=== PATIENT | female | born 1935 | race Caucasian/White ===

== ENCOUNTER 2018-04-07 11:07 | Emergency (ER) | payer MEDICARE, BC ==
[2018-04-07 11:18] VITALS: BP 147/91
--- NOTE | 2018-04-07 12:48 | UC ---
Bite Injury/Animal HPI - HPI Summary HPI Summary: L abd tick bite she noticed today but feels its been there a week. - History of Current Complaint Chief Complaint: Vivian Stated Complaint: TICK BITE Time Seen by Provider: 04/07/18 12:30 Hx Obtained From: Patient Hx Last Menstrual Period: na ?: No Pain Intensity: 0 Onset/Duration: Sudden Onset Type of Bite: Animal Aggravating Factor(s): Nothing Alleviating Factor(s): Nothing Associated Signs And Symptoms: Positive: Negative - Risk Factors Infection/Sepsis Risk Factors: Delay in Initial Treatment - tick bite for one week - Allergies/Home Medications Allergies/Adverse Reactions: Allergies Allergy/AdvReac Type Severity Reaction Status Date / Time acetaminophen Allergy See Comment Verified 04/07/18 11:19 codeine Allergy Anxiety Verified 04/07/18 11:19 Sulfa (Sulfonamide Allergy Hives Verified 04/07/18 11:19 Antibiotics) PMH/Surg Hx/FS Hx/Imm Hx Previously Healthy: Yes - Surgical History Surgical History: Yes Surgery Procedure, Year, and Place: TONSILS;HYSTERECTOMY; BREAST REDUCTION; CATARACT -2011; Rt KNEE ARTHROSCOPIC- 2008 - Social History Alcohol Use: Occasionally Alcohol Amount: 1 glass wine Substance Use Type: None Smoking Status (MU): Former Smoker Type: Cigarettes Have You Smoked in the Last Year: No When Did the Patient Quit Smoking/Using Tobacco: 1979 Review of Systems All Other Systems Reviewed And Are Negative: Yes Constitutional: Positive: Negative Skin: Positive: Other - itchy at site where tick is. Respiratory: Positive: Negative Cardiovascular: Positive: Negative Musculoskeletal: Positive: Negative Physical Exam Triage Information Reviewed: Yes Appearance: Well-Appearing Vital Signs: Initial Vital Signs Temp 96.8 F 04/07/18 11:13 Pulse 60 04/07/18 11:13 Resp 20 04/07/18 11:13 BP 147/91 04/07/18 11:13 Pulse Ox 98 04/07/18 11:13 Vital Signs Reviewed: Yes Skin: Positive: Other - at l side of upper abd there is an engorged tick and small circular area of irritation. removed w/ out issue. Bite Injury Course/Dx - Course Course Of Treatment: tick bite for more than 36 hours and tick engorged. asymptomatic aside from site irritation. removed without issue. needs f/u w/ elevated blood pressure. no cardiac or neuro symptoms. - Differential Dx/Diagnosis Differential Diagnosis/HQI/PQRI: Other - tick bite Provider Diagnoses: tick bite, tick removal. Discharge - Sign-Out/Discharge Documenting (check all that apply): Patient Departure All imaging exams completed and their final reports reviewed: No Studies - Discharge Plan Condition: Good Disposition: HOME Prescriptions: DOXYcycline CAP(*) [DOXYcycline 100MG CAP(*)] 100 mg PO BID #28 cap Patient Education Materials: Tick Bite (ED) Referrals: Marjorie La MD [Primary Care Provider] - Additional Instructions: Please follow up with your pcp about elevated blood pressure. Finish antibiotics until complete. - Billing Disposition and Condition Condition: GOOD Disposition: Home
== END 2018-04-07 13:02 | disposition home or self-care (01) ==
LOC: UCEAST 11:07
DX: S30.861A Insect bite (nonvenomous) of abdominal wall, initial encounter (principal); Z88.5 Allergy status to narcotic agent; Z88.6 Allergy status to analgesic agent; Z87.891 Personal history of nicotine dependence; W57.XXXA Bitten or stung by nonvenomous insect and other nonvenomous arthropods, initial encounter; Y92.9 Unspecified place or not applicable
CPT/HCPCS: 99212; G0463

== ENCOUNTER 2018-05-30 14:28 | Emergency (ER) | payer MEDICARE, BC ==
[2018-05-30 15:08] VITALS: BP 155/94
--- NOTE | 2018-05-30 15:08 | UC ---
Ear Complaint HPI - HPI Summary HPI Summary: 82 yo female presents with FB in right ear. She tells me that she has had this happen before. Went to take her hearing aids out and the plastic ear piece remained lodged in her ear canal. She is in no pain. Was unable to remove it at home. - History of Current Complaint Chief Complaint: UCForeignBody Stated Complaint: FOREIGN OBJECT-EAR Time Seen by Provider: 05/30/18 15:08 Hx Obtained From: Patient Hx Last Menstrual Period: post Onset/Duration: Sudden Onset Severity Currently: None Pain Intensity: 0 - Allergies/Home Medications Allergies/Adverse Reactions: Allergies Allergy/AdvReac Type Severity Reaction Status Date / Time acetaminophen Allergy See Comment Verified 05/30/18 15:08 codeine Allergy Anxiety Verified 05/30/18 15:08 Sulfa (Sulfonamide Allergy Hives Verified 05/30/18 15:08 Antibiotics) PMH/Surg Hx/FS Hx/Imm Hx Endocrine History: Hypothyroidism Psychological History: Anxiety, Depression - Surgical History Surgical History: Yes Surgery Procedure, Year, and Place: TONSILS;HYSTERECTOMY; BREAST REDUCTION; CATARACT -2011; Rt KNEE ARTHROSCOPIC- 2008 - Family History Known Family History: Positive: Unknown - Social History Occupation: Retired Lives: With Family Alcohol Use: Occasionally Alcohol Amount: 1 glass wine Substance Use Type: None Smoking Status (MU): Former Smoker Type: Cigarettes Have You Smoked in the Last Year: No When Did the Patient Quit Smoking/Using Tobacco: 1979 Review of Systems All Other Systems Reviewed And Are Negative: Yes Constitutional: Positive: Negative Skin: Positive: Negative Eyes: Positive: Negative ENT: Positive: Other - FB in ear Respiratory: Positive: Negative Cardiovascular: Positive: Negative Physical Exam - Summary Physical Exam Summary: GENERAL: NAD. WDWN. No pain distress. SKIN: No rashes, sores, lesions, or open wounds. HEENT: Head: AT/NC Eyes: EOM intact. Conjunctiva clear without inflammation or discharge. Ears: Hearing decreased d/t no hearing aid. RIGHT EAR with plastic FB lodged within canal. s/p removal: No cerumen or erythema. TM intact. CHEST: No accessory muscle use. Breathing comfortably and in no distress. CV: Pulses intact. NEURO: Alert. PSYCH: Age appropriate behavior. Triage Information Reviewed: Yes Vital Signs: Initial Vital Signs Temp 98.1 F 05/30/18 15:05 Pulse 77 05/30/18 15:05 Resp 16 05/30/18 15:05 BP 155/94 05/30/18 15:05 Pulse Ox 98 05/30/18 15:05 Vital Signs Reviewed: Yes Ear Complaint Course/Dx - Course Course Of Treatment: Hemostats were used to gently pull the ear piece out of the right ear canal. Removed without difficulty. Pt tolerated well. - Differential Dx/Diagnosis Provider Diagnosis: Foreign body in right ear Discharge - Sign-Out/Discharge Documenting (check all that apply): Patient Departure All imaging exams completed and their final reports reviewed: No Studies - Discharge Plan Condition: Stable Disposition: HOME Patient Education Materials: Ear Foreign Body (ED) Referrals: Marjorie La MD [Primary Care Provider] - Additional Instructions: If you develop a fever, shortness of breath, chest pain, new or worsening symptoms - please call your PCP or go to the ED. Your blood pressure was high at todays visit. Please see your primary provider within 4 weeks for recheck and re-evaluation. - Billing Disposition and Condition Condition: STABLE Disposition: Home
== END 2018-05-30 15:25 | disposition home or self-care (01) ==
LOC: UCEAST 14:28
DX: T16.1XXA Foreign body in right ear, initial encounter (principal); Z88.6 Allergy status to analgesic agent; Z88.5 Allergy status to narcotic agent; Z88.2 Allergy status to sulfonamides; Z87.891 Personal history of nicotine dependence; X58.XXXA Exposure to other specified factors, initial encounter; Y92.9 Unspecified place or not applicable
CPT/HCPCS: 99211; G0463

== ENCOUNTER 2018-09-26 18:30 | Emergency (ER) | payer MEDICARE, BC ==
[2018-09-26 18:58] VITALS: BP 187/90
--- NOTE | 2018-09-26 20:01 | UC ---
Ear Complaint HPI - HPI Summary HPI Summary: 82 y/o female presents to the urgent care c/o a piece of her hearing aid is in her Rt ear. Pt reports she tried to remove hearing aid about 2 hrs ago and she noticed the dome was missing. She has mild pressure and discomfort in her Rt ear. Pt denies pain, dizziness, fever, LUCAS, SOB, visual changes, chest pain, abdominal pain, N/V/D. Pt states her BP medication Amlodipine was decrease about 3 months ago by her PCP after going through a lot of cardiac work up and everything was normal. - History of Current Complaint Chief Complaint: UCEar Stated Complaint: EAR COMPLAINT Time Seen by Provider: 09/26/18 19:19 Hx Obtained From: Patient Hx Last Menstrual Period: post Onset/Duration: Sudden Onset, Lasting Hours - 3 hrs Severity Initially: Mild Severity Currently: Mild Pain Intensity: 1 - RT ear irritation Pain Scale Used: 0-10 Numeric Aggravating Factors: Nothing Alleviating Factors: Nothing Associated Signs/Symptoms: Positive: Hearing Loss - Allergies/Home Medications Allergies/Adverse Reactions: Allergies Allergy/AdvReac Type Severity Reaction Status Date / Time acetaminophen Allergy See Comment Verified 09/26/18 19:00 codeine Allergy Anxiety Verified 09/26/18 19:00 Sulfa (Sulfonamide Allergy Hives Verified 09/26/18 19:00 Antibiotics) PMH/Surg Hx/FS Hx/Imm Hx Previously Healthy: Yes Endocrine History: Hypothyroidism, Dyslipidemia Cardiovascular History: Hypertension Psychological History: Anxiety, Depression - Surgical History Surgical History: Yes Surgery Procedure, Year, and Place: TONSILS;HYSTERECTOMY; BREAST REDUCTION; CATARACT -2011; Rt KNEE ARTHROSCOPIC- 2008 - Family History Known Family History: Positive: Cardiac Disease, Hypertension - Social History Occupation: Retired Lives: With Family Alcohol Use: Occasionally Alcohol Amount: 1 glass wine Substance Use Type: None Smoking Status (MU): Former Smoker Type: Cigarettes Have You Smoked in the Last Year: No When Did the Patient Quit Smoking/Using Tobacco: 1979 Review of Systems All Other Systems Reviewed And Are Negative: Yes Constitutional: Positive: Negative Skin: Positive: Negative Eyes: Positive: Negative ENT: Positive: Ear Ache - Rt ear hearing aid foreign body Respiratory: Positive: Negative Cardiovascular: Positive: Negative Gastrointestinal: Positive: Negative Genitourinary: Positive: Negative Motor: Positive: Negative Neurovascular: Positive: Negative Musculoskeletal: Positive: Negative Neurological: Positive: Negative Psychological: Positive: Negative Is Patient Immunocompromised?: No Physical Exam - Summary Physical Exam Summary: Vital signs: reviewed General: well developed, well nourished old female sitting in the examining table w/o any apparent pain or respiratory distress Skin: [place], warm and dry, no evidence of atopic dermatitis, psoriasis, seborrhea. HEENT: -Head: atraumatic, non tender; no scalp dermatitis. -Eyes: sclera and conjunctiva clear, PERRLA, EOMI -Ears: no pre- or postauricular lymphadenopathy or erythema; RT external ear canal with a herrera hearing aid dome, no pinna tenderness on palpation, FB removed anbd no signs of infection Rt TM WNL, LF external ear canal clear and LF TM WNL. TMs normal w/out bulging or retraction. Good light reflex. No fluid level, vesicles, or bullae. No perforation. -Nose/Face: erythematous and edematous nasal mucosa with clear rhinorrhea, no frontal or maxillary sinus tender to palpation. -Mouth/Throat: Mucous membrane moist, posterior pharynx clear, no erythema or exudates. Neck: supple, FROM, nontender, no lymphadenopathy, no meningismus. Chest: Clear to auscultation, normal breath sounds Abd: soft, Bowel sounds active, Nontender. Back: no spinal or CVAT Neuro: A&O x4, GCS 15, no focal neuro deficits, normal behavior for age. Triage Information Reviewed: Yes Vital Signs: Initial Vital Signs Temp 97.9 F 09/26/18 18:53 Pulse 78 09/26/18 18:53 Resp 16 09/26/18 18:53 BP 187/90 09/26/18 18:53 Pulse Ox 98 09/26/18 18:53 Ear Complaint Course/Dx - Course Course Of Treatment: 82 y/o female presents to the urgent care c/o a piece of her hearing aid is in her Rt ear. Pt reports she tried to remove hearing aid about 2 hrs ago and she noticed the dome was missing. She has mild pressure and discomfort in her Rt ear. Pt denies pain, dizziness, fever, LUCAS, SOB, visual changes, chest pain, abdominal pain, N/V/D. Pt states her BP medication Amlodipine was decrease about 3 months ago by her PCP after going through a lot of cardiac work up and everything was normal. Hx obtained. Pt is hemodynamically stable, A&OX3. Pt w/ RT external ear canal with a herrera hearing aid dome, no pinna tenderness on palpation, FB removed and no signs of infection, Rt TM WNL. Pt tolerated well procedure. Pt w/ PMHX of HTN . Pt's BP is elevated today. she states she already went trough 3 EKGs and stress test about 3 months ago and all were negative and her PCP lower her BP medication. Pt advised to take BP medication and decrease salt in her diet, monitor her BP and if it continues to be elevated to please f/u with her PCP for further management. However If she develops chest pain, dizziness, visual disturbances, SOB, or severe LUCAS to go immediately to the ER for further management. D/c instructions explained. Pt understood and agreed w/ plan of care/ Pt left the clinic ambulating and hemodynamically stable, A&OX 3 - Differential Dx/Diagnosis Differential Diagnosis/HQI/PQRI: Cerumen Impaction, Foreign Body, Otitis Externa , Otitis Media, Perforated TM Provider Diagnosis: Foreign body in right ear, Uncontrolled hypertension Discharge - Sign-Out/Discharge Documenting (check all that apply): Patient Departure - D/C home All imaging exams completed and their final reports reviewed: No Studies - Discharge Plan Condition: Stable Disposition: HOME Patient Education Materials: Ear Foreign Body (ED), Low-Sodium Diet (ED) Referrals: Marjorie La MD [Primary Care Provider] - 2 Days Additional Instructions: 1- The hearing aid foreign body on your Rt ear was completely removed. No signs of infection observed. 2-Your BP is elevated today. Please take your BP medications and decrease salt in your diet, monitor BP and if it continues to be elevated please f/u with your PCP for further management. If you develop chest pain, dizziness, visual disturbances, SOB, or severe LUCAS please go immediately to the ER for further management - Billing Disposition and Condition Condition: STABLE Disposition: Home
== END 2018-09-26 20:12 | disposition home or self-care (01) ==
LOC: UCEAST 18:30
DX: T16.1XXA Foreign body in right ear, initial encounter (principal); H92.01 Otalgia, right ear; X58.XXXA Exposure to other specified factors, initial encounter; Y92.9 Unspecified place or not applicable; I10 Essential (primary) hypertension; E03.9 Hypothyroidism, unspecified; E78.5 Hyperlipidemia, unspecified; F41.9 Anxiety disorder, unspecified; F32.9 Major depressive disorder, single episode, unspecified; Z88.6 Allergy status to analgesic agent; Z88.5 Allergy status to narcotic agent; Z88.2 Allergy status to sulfonamides; Z87.891 Personal history of nicotine dependence
CPT/HCPCS: 69200; 99211; G0463

== ENCOUNTER 2023-04-28 11:18 | Inpatient (IN) ==
[2023-04-28 11:38] LABS: ABS Eosinophils 0.1 10^3/uL (0.0-0.5); ABS Lymphocytes 1.5 10^3/uL (1.0-4.8); ABS Monocytes 0.5 10^3/uL (0.0-0.9); ABS Neutrophils 3.5 10^3/uL (1.5-7.6); Eosinophil % 1.6 %; Hematocrit 19.2 % (35-45); Hemoglobin 6.5 g/dL (11.5-14.3); Lymphocyte % 27.6 %; Mean Corpuscular Hgb Conc 33.8 g/dL (31-36); Mean Corpuscular Volume 97.6 fL (80-97); Mean Platelet Volume 8.5 fL (7.5-11.2); Nucleated Red Blood Cells % 0.1 %/100WBC (0.0-0.8); Platelet Count 258 10^3/uL (150-450); Red Blood Count 1.97 10^6/uL (3.63-4.92); Red Cell Distribution Width 15.4 % (12-17); White Blood Count 5.6 10^3/uL (3.8-11.8)
[2023-04-28 12:48] LABS: Albumin 3.3 g/dL (3.2-5.2); Albumin/Globulin Ratio 2.2 (1-3); Calcium 8.9 mg/dL (8.6-10.3); Creatinine, Serum 1.22 mg/dL (0.51-0.95); Globulin 1.5 g/dL (2-4); Potassium 3.9 mmol/L (3.5-5.0); Total Bilirubin 0.3 mg/dL (0.2-1.0); Total Protein 4.8 g/dL (6.4-8.9)
[2023-04-28] MEDS ORDERED: Iodixanol (CONTRAST) 320 MG/ML 100 ML SDV IV ONE (13:04)
[2023-04-28] MEDS ORDERED: Pantoprazole VIAL 40 MG VIAL IV ONE (14:54)
[2023-04-28 15:58] LABS: Hematocrit 23.2 % (35-45); Hemoglobin 7.7 g/dL (11.5-14.3)
[2023-04-28] MEDS ORDERED: Pantoprazole 80 mg in NS BAG 80 MG/250 ML BAG IV SCH (16:00)
[2023-04-28] MEDS ORDERED: Midazolam 10 mg/10 ml VIAL 1 mg/ml 10 ml VIAL (10 mg) ONE (16:10)
[2023-04-28] MEDS ORDERED: fentaNYL 100 mcg/2 ml 50 MCG/ML VIAL ONE (16:10)
[2023-04-28] MEDS ORDERED: PEG 3000 GI LAVAGE 1 GALLON PO ONE (16:43)
[2023-04-28] MEDS: D5W 1/2 NS 1000 ml BAG 1,000 ML IV SCH (19:19)
[2023-04-28] MEDS: Pantoprazole 80 mg in NS BAG 80 MG/250 ML BAG IV SCH (21:56)
[2023-04-29] MEDS: D5W 1/2 NS 1000 ml BAG 1,000 ML IV SCH ×2 (06:37→20:43)
[2023-04-29 07:16] LABS: INR 1.04 (0.83-1.13)
[2023-04-29 08:03] LABS: ABS Eosinophils 0.1 10^3/uL (0.0-0.5); ABS Lymphocytes 1.8 10^3/uL (1.0-4.8); ABS Monocytes 0.8 10^3/uL (0.0-0.9); ABS Neutrophils 6.2 10^3/uL (1.5-7.6); ABS Nucleated RBC 0.01 10^3/ul; Eosinophil % 0.8 %; Hematocrit 27.2 % (35-45); Hemoglobin 9.4 g/dL (11.5-14.3); Lymphocyte % 19.9 %; Mean Corpuscular Hemoglobin 31.2 pg (27-33); Mean Corpuscular Hgb Conc 34.6 g/dL (31-36); Mean Platelet Volume 8.5 fL (7.5-11.2); Nucleated Red Blood Cells % 0.2 %/100WBC (0.0-0.8); Platelet Count 237 10^3/uL (150-450); Red Blood Count 3.02 10^6/uL (3.63-4.92); Red Cell Distribution Width 18.5 % (12-17); White Blood Count 8.8 10^3/uL (3.8-11.8)
[2023-04-29 08:26] LABS: Albumin 3.6 g/dL (3.2-5.2); Calcium 8.4 mg/dL (8.6-10.3); Creatinine, Serum 0.95 mg/dL (0.51-0.95); Direct Bilirubin 0.1 mg/dL (0.03-0.18); Globulin 1.8 g/dL (2-4); Indirect Bilirubin 0.7 mg/dL (0.3-1.0); Magnesium 1.9 mg/dL (1.9-2.7); Potassium 3.4 mmol/L (3.5-5.0); Total Bilirubin 0.8 mg/dL (0.2-1.0); Total Protein 5.4 g/dL (6.4-8.9)
[2023-04-29] MEDS: Pantoprazole 80 mg in NS BAG 80 MG/250 ML BAG IV SCH ×3 (08:47→23:53)
[2023-04-29] MEDS: Venlafaxine XR 75 mg PO SCH (08:52)
[2023-04-29] MEDS ORDERED: fentaNYL 100 mcg/2 ml 50 MCG/ML VIAL ONE (09:47)
[2023-04-29] MEDS ORDERED: Midazolam 10 mg/10 ml VIAL 1 mg/ml 10 ml VIAL (10 mg) ONE (09:47)
[2023-04-29] MEDS ORDERED: Potassium Chlor 20 meq TAB.ER PO ONE ×2 (12:43→15:00)
[2023-04-30 06:30] LABS: ABS Eosinophils 0.1 10^3/uL (0.0-0.5); ABS Lymphocytes 1.6 10^3/uL (1.0-4.8); ABS Monocytes 0.7 10^3/uL (0.0-0.9); ABS Neutrophils 4.8 10^3/uL (1.5-7.6); ABS Nucleated RBC 0.01 10^3/ul; Eosinophil % 1.7 %; Hemoglobin 8.4 g/dL (11.5-14.3); Lymphocyte % 22.4 %; Mean Corpuscular Hemoglobin 31.6 pg (27-33); Mean Corpuscular Volume 90.5 fL (80-97); Mean Platelet Volume 8.7 fL (7.5-11.2); Nucleated Red Blood Cells % 0.1 %/100WBC (0.0-0.8); Platelet Count 230 10^3/uL (150-450); Red Blood Count 2.65 10^6/uL (3.63-4.92); Red Cell Distribution Width 17.9 % (12-17); White Blood Count 7.3 10^3/uL (3.8-11.8)
[2023-04-30] MEDS ORDERED: Potassium Chlor 20 meq TAB.ER PO ONE (07:28)
[2023-04-30 07:31] LABS: Calcium 7.9 mg/dL (8.6-10.3); Creatinine, Serum 0.89 mg/dL (0.51-0.95); Magnesium 1.6 mg/dL (1.9-2.7); Potassium 4.3 mmol/L (3.5-5.0); eGFR CKD-EPI 62.7 (>60)
[2023-04-30] MEDS ORDERED: Magnesium Sulf 4 GM/100 ML IV 4,000 MG/100 ML BAG IVPB ONE (07:36)
[2023-04-30] MEDS: D5W 1/2 NS 1000 ml BAG 1,000 ML IV SCH (08:09)
[2023-04-30] MEDS ORDERED: Influenza vaccine *QUAD* *2023-24* 0.5 ML SYRINGE IM ONE (09:00)
[2023-04-30] MEDS: Venlafaxine XR 75 mg PO SCH (09:11)
[2023-04-30] MEDS: Pantoprazole 80 mg in NS BAG 80 MG/250 ML BAG IV SCH (10:13)
[2023-05-01 06:08] LABS: ABS Eosinophils 0.2 10^3/uL (0.0-0.5); ABS Lymphocytes 1.7 10^3/uL (1.0-4.8); ABS Monocytes 0.8 10^3/uL (0.0-0.9); ABS Neutrophils 5.5 10^3/uL (1.5-7.6); Eosinophil % 1.9 %; Hematocrit 23.1 % (35-45); Lymphocyte % 20.4 %; Mean Corpuscular Hemoglobin 31.5 pg (27-33); Mean Corpuscular Hgb Conc 34.4 g/dL (31-36); Mean Corpuscular Volume 91.3 fL (80-97); Mean Platelet Volume 8.8 fL (7.5-11.2); Platelet Count 229 10^3/uL (150-450); Red Blood Count 2.53 10^6/uL (3.63-4.92); Red Cell Distribution Width 17.6 % (12-17); White Blood Count 8.2 10^3/uL (3.8-11.8)
[2023-05-01 06:25] LABS: Calcium 8.2 mg/dL (8.6-10.3); Creatinine, Serum 0.95 mg/dL (0.51-0.95); Magnesium 2.4 mg/dL (1.9-2.7); Potassium 3.9 mmol/L (3.5-5.0)
[2023-05-01] MEDS: Venlafaxine XR 75 mg PO SCH (08:29)
[2023-05-01 11:44] LABS: ABS Basophils 0.1 10^3/uL (0.0-0.1); ABS Eosinophils 0.1 10^3/uL (0.0-0.5); ABS Monocytes 0.8 10^3/uL (0.0-0.9); ABS Neutrophils 5.2 10^3/uL (1.5-7.6); ABS Nucleated RBC 0.01 10^3/ul; Eosinophil % 1.1 %; Hematocrit 21.5 % (35-45); Hemoglobin 7.4 g/dL (11.5-14.3); Mean Corpuscular Hemoglobin 31.7 pg (27-33); Mean Corpuscular Hgb Conc 34.3 g/dL (31-36); Mean Corpuscular Volume 92.3 fL (80-97); Mean Platelet Volume 8.1 fL (7.5-11.2); Nucleated Red Blood Cells % 0.1 %/100WBC (0.0-0.8); Platelet Count 221 10^3/uL (150-450); Red Blood Count 2.33 10^6/uL (3.63-4.92); Red Cell Distribution Width 17.5 % (12-17); White Blood Count 7.2 10^3/uL (3.8-11.8)
[2023-05-01] MEDS ORDERED: Iodixanol (CONTRAST) 320 MG/ML 100 ML SDV IV ONE (12:48)
[2023-05-01 16:33] LABS: Hematocrit 26.9 % (35-45); Hemoglobin 9.2 g/dL (11.5-14.3)
[2023-05-01 20:13] LABS: Hematocrit 28.6 % (35-45); Hemoglobin 10.1 g/dL (11.5-14.3)
[2023-05-02 02:43] LABS: Hematocrit 25.4 % (35-45)
[2023-05-02 07:18] LABS: Hematocrit 25.5 % (35-45); Hemoglobin 8.9 g/dL (11.5-14.3)
[2023-05-02] MEDS: Venlafaxine XR 75 mg PO SCH (08:25)
[2023-05-02] MEDS ORDERED: PEG 3000 GI LAVAGE 1 GALLON PO ONE (18:00)
[2023-05-02] MEDS ORDERED: Polyethylene Glycol 3350 17 GM PACKET PO SCH (21:00)
[2023-05-03 07:50] LABS: Hematocrit 25.4 % (35-45); Hemoglobin 8.7 g/dL (11.5-14.3); Mean Corpuscular Hemoglobin 31.5 pg (27-33); Mean Corpuscular Hgb Conc 34.2 g/dL (31-36); Mean Platelet Volume 8.4 fL (7.5-11.2); Platelet Count 245 10^3/uL (150-450); Red Blood Count 2.76 10^6/uL (3.63-4.92); Red Cell Distribution Width 16.9 % (12-17)
[2023-05-03 08:09] LABS: Calcium 8.1 mg/dL (8.6-10.3); Creatinine, Serum 0.94 mg/dL (0.51-0.95); Potassium 3.6 mmol/L (3.5-5.0); eGFR CKD-EPI 58.7 (>60)
[2023-05-03] MEDS: Venlafaxine XR 75 mg PO SCH (13:02)
[2023-05-04 06:30] LABS: Hematocrit 24.8 % (35-45); Hemoglobin 8.7 g/dL (11.5-14.3); Mean Corpuscular Hemoglobin 32.4 pg (27-33); Mean Corpuscular Volume 92.6 fL (80-97); Mean Platelet Volume 8.5 fL (7.5-11.2); Platelet Count 250 10^3/uL (150-450); Red Blood Count 2.68 10^6/uL (3.63-4.92); Red Cell Distribution Width 17.1 % (12-17)
[2023-05-04] MEDS: Venlafaxine XR 75 mg PO SCH (08:10)
[2023-05-04 18:37] VITALS: BP 196/95
[2023-05-06 11:07] LABS: Coagulation F VIII Activity 122 % (55 - 200); von Willebrand Factor Activity 121 % (55 - 200)
== END 2023-05-04 19:26 | disposition home or self-care (01) | DRG 379 ==
LOC: ED 11:18 → EDHOLD 11:18 → SSU 17:37 → SUATTDRO 04-29 11:22 → SSU 04-29 23:30
PROVIDERS: ADMIT Internal Medicine; ATTEND Internal Medicine

== ENCOUNTER 2024-02-24 17:16 | Observation (INO) ==
[2024-02-24 19:20] LABS: ABS Basophils 0.1 10^3/uL (0.0-0.1); ABS Eosinophils 0.1 10^3/uL (0.0-0.5); ABS Lymphocytes 1.3 10^3/uL (1.0-4.8); ABS Monocytes 0.4 10^3/uL (0.0-0.9); Hematocrit 36.2 % (35-45); Hemoglobin 12.3 g/dL (11.5-14.3); Lymphocyte % 26.1 %; Mean Corpuscular Hemoglobin 32.1 pg (27-33); Mean Corpuscular Hgb Conc 34.1 g/dL (31-36); Mean Corpuscular Volume 94.2 fL (80-97); Mean Platelet Volume 8.2 fL (7.5-11.2); Nucleated Red Blood Cells % 0.1 %/100WBC (0.0-0.8); Platelet Count 267 10^3/uL (150-450); Red Blood Count 3.84 10^6/uL (3.63-4.92); Red Cell Distribution Width 16.1 % (12-17); White Blood Count 4.9 10^3/uL (3.8-11.8)
[2024-02-24 19:43] LABS: High Sens Troponin Baseline 17 pg/mL (<15)
[2024-02-24 19:56] LABS: Activated Partial Thrombo Time 32.2 seconds (26.0-38.0); INR 1.02 (0.85-1.14)
[2024-02-24 20:05] LABS: ALT 25 U/L (7-52); Acetaminophen < 15 mcg/mL; Albumin 4.4 g/dL (3.2-5.2); Albumin/Globulin Ratio 1.9 (1-3); Alcohol, S < 13 mg/dL (<13); Alkaline Phosphatase 43 U/L (35-149); Anion Gap 8 mmol/L (2-16); Blood Urea Nitrogen 23 mg/dL (6-24); C Reactive Protein < 1.00 mg/L (<8.01); CO2 Carbon Dioxide 29 mmol/L (22-32); Chloride 102 mmol/L (101-111); Globulin 2.3 g/dL (2-4); Glucose 88 mg/dL (70-100); Salicylate < 2.50 mg/dL (<30); Sodium 139 mmol/L (135-145); Total Bilirubin 0.6 mg/dL (0.2-1.0); Total Protein 6.7 g/dL (6.4-8.9); eGFR CKD-EPI 33.3 (>60)
[2024-02-24 20:56] LABS: High Sensitivity Troponin 1 Hr 13 pg/mL (<15)
[2024-02-24 21:36] LABS: Free T4 < 0.25 ng/dL (0.61-1.12)
[2024-02-24] MEDS: Lactated Ringers 1000 ml BAG 1,000 ML IV ONE (22:13)
[2024-02-24 23:00] LABS: AST Redraw 39 U/L (13-39); Potassium Redraw 3.7 mmol/L (3.5-5.0)
[2024-02-25 12:57] LABS: Urine Appearance Clear; Urine Bilirubin Negative (Negative); Urine Blood Negative (Negative); Urine Color Yellow; Urine Glucose Negative (Negative); Urine Ketones Negative (Negative); Urine Nitrite Negative (Negative); Urine Protein Trace (Negative); Urine Specific Gravity 1.021 (1.002-1.030); Urine Urobilinogen Negative (Negative)
[2024-02-25] MEDS ORDERED: Levothyroxine 100 MCG/5 ML VIAL IV SCH (13:00)
[2024-02-25 13:12] LABS: Urine Benzodiazepine Screen None Detected (None Detect); Urine Cannabinoids Screen None Detected (None Detect); Urine Opiates Screen None Detected (None Detect)
[2024-02-25 14:14] LABS: Folate > 20.00 ng/mL (5.90-24.80)
[2024-02-25 14:15] LABS: Vitamin B12 518 pg/mL (180-914)
[2024-02-25] MEDS: Levothyroxine 100 MCG/5 ML VIAL IV SCH (16:19)
[2024-02-25] MEDS: Venlafaxine XR 75 mg PO SCH (19:29)
[2024-02-25] MEDS: Enoxaparin 30 MG/0.3 ML SYR SUBCUT SCH (19:31)
[2024-02-26] MEDS: Levothyroxine 100 MCG/5 ML VIAL IV SCH (05:36)
[2024-02-26 06:19] LABS: Free T4 0.3 ng/dL (0.61-1.12)
[2024-02-26 08:30] LABS: Calcium 9.4 mg/dL (8.6-10.3); Creatinine, Serum 1.35 mg/dL (0.51-0.95); Potassium 3.7 mmol/L (3.5-5.0); eGFR CKD-EPI 37.8 (>60)
[2024-02-26 14:37] VITALS: BP 151/104
== END 2024-02-26 20:21 | disposition home health service (06) ==
LOC: ED 17:16 → EDHOLD 17:16 → MED 02-25 14:53
PROVIDERS: ADMIT Student in an Organized Health Care Education/Training Program; ATTEND Student in an Organized Health Care Education/Training Program